=== PATIENT | female | born 1975 | race Asian ===

== ENCOUNTER → 2024-11-30 | Outpatient (CLI) | payer BC ==
[2024-12-06 13:33] LABS: HPV HIGH RISK BY TMA Not Detected; HPV SOURCE Cervical
== END | disposition home or self-care (01) ==
LOC: LAB 15:30 → LAB SHORT 15:30
PROVIDERS: Nurse Practitioner Family
DX: Z01.419 Encounter for gynecological examination (general) (routine) without abnormal findings (principal)
CPT/HCPCS: 87624; G0123